=== PATIENT | female | born 1970 | race Caucasian/White ===

== ENCOUNTER 2016-12-25 15:10 | Emergency (ER) | payer OTHER ==
[~2016-12-25] VITALS: Ht 172.7 cm; Wt 65.0 kg
[2016-12-25] MEDS ORDERED: CITA20TA9 PO (15:25)
[2016-12-25] MEDS ORDERED: TRAZ-147 PO (15:25)
[2016-12-25] MEDS ORDERED: FOLI1 PO (15:25)
[2016-12-25] MEDS ORDERED: FLUT16H NASAL (15:25)
[2016-12-25] MEDS ORDERED: THIA100 PO (15:25)
[2016-12-25] MEDS ORDERED: MULT1TAB70 PO (15:25)
[2016-12-25] MEDS ORDERED: LORA10TA7 PO (15:25)
[2016-12-25] MEDS ORDERED: FAMO20 PO (15:25)
[2016-12-25] MEDS ORDERED: ASPI81TA42 PO (15:25)
[2016-12-25] MEDS ORDERED: IBUP-1547 PO (15:25)
[2016-12-25] MEDS ORDERED: BECL8.7A5 IH (15:25)
[2016-12-25] MEDS ORDERED: BUSP15 PO (15:25)
[2016-12-25] MEDS ORDERED: BENZ-26 PO (15:25)
[2016-12-25] MEDS ORDERED: ATOR40TA28 PO (15:25)
[2016-12-25] MEDS ORDERED: INDO50 PO (15:25)
[2016-12-25] MEDS ORDERED: SODIUM CHLORIDE 0.9% 1,000 ML IV ONE (15:53)
[2016-12-25] MEDS ORDERED: DiphenhydrAMINE HCL 50 MG/ML VIAL IVP ONE (16:00)
[2016-12-25] MEDS ORDERED: ONDANSETRON HCL 4 MG/2 ML VIAL IVP ONE (16:00)
[2016-12-25 17:05] LABS: BASOPHILS % (AUTO) 0.3 % (0.0-2.0); EOSINOPHILS % (AUTO) 0 % (1.0-6.0); HEMOGLOBIN 13.3 g/dL (12.0-16.0); LYMPHOCYTES # (AUTO) 0.9 K/uL (1.0-4.8); MEAN CORPUSCULAR HGB CONC 34.1 G/dL (31.0-37.0); MEAN CORPUSCULAR VOLUME 91 fL (80-100); MONOCYTES # (AUTO) 1.5 K/uL (0.1-1.0); MONOCYTES % (AUTO) 6.8 % (2.0-9.0); NEUTROPHILS # (AUTO) 19.2 K/uL (1.8-7.7); PLATELET COUNT (AUTO) 232 K/uL (150-450); RED BLOOD CELL COUNT(AUTO) 4.29 MIL/uL (4.00-5.20); RED CELL DISTRIBUTION WIDTH 13.8 % (11.5-14.5); WHITE BLOOD COUNT (AUTO) 21.6 K/uL (4.5-11.0)
[2016-12-25 17:07] LABS: NEUTROPHILS % (AUTO) 88.9 % (40.0-70.0)
[2016-12-25 17:27] LABS: RBC MORPHOLOGY COMMENT NORMAL RBC MORPH
[2016-12-25 17:54] LABS: ANION GAP 9 mmol/L (8-16); CALCIUM, TOTAL 8.8 mg/dL (8.8-10.5); CARBON DIOXIDE 29 mmol/L (22-29); CHLORIDE 97 mmol/L (98-107); CREATININE 0.87 mg/dL (0.60-1.30); GLOMERULAR FILTR. RATE CALC > 60 mL/min (>60); POTASSIUM 4.1 mmol/L (3.5-5.1); SODIUM SERUM 135 mmol/L (136-145); UREA NITROGEN, BLOOD 15 mg/dL (7-18)
[2016-12-25 18:02] LABS: INFLUENZA TYPE B NEGATIVE FOR TYPE B (NEGATIVE)
[2016-12-25 18:05] LABS: ALANINE AMINOTRANSFERASE 18 U/L (12-78); ALBUMIN 3.5 g/dL (3.4-5.0); ASPARTATE AMINOTRANSFERASE 12 U/L (15-37); BILIRUBIN,TOTAL 0.5 mg/dL (0.1-1.0); TOTAL PROTEIN, SERUM 6.9 g/dL (6.4-8.2)
[2016-12-25] MEDS ORDERED: KETOROLAC TROMETHAMINE 30 MG/ML VIAL IVP ONE (18:30)
[2016-12-25 19:13] LABS: ADD UA MICROSCOPIC YES; APPEARANCE,URINE CLOUDY (CLEAR); GLUCOSE, URINE (UA) NEGATIVE (NEGATIVE); KETONES,URINE NEGATIVE (NEGATIVE); LEUKOCYTE ESTERASE ,URINE SMALL (NEGATIVE); OCCULT BLOOD,URINE SMALL (NEGATIVE); PH,URINE 7.5 (5.0-8.0); PROTEIN,URINE TRACE (NEGATIVE)
[2016-12-25 19:36] LABS: SQUAMOUS EPITHELIAL CELL,UR Moderate /LPF (None Seen)
[2016-12-25] MEDS ORDERED: NITROFURANTOIN/NITROFURAN MAC 100 MG CAPSULE [MACROBID] PO ONE (20:15)
[2016-12-25 21:11] VITALS: BP 118/80
== END 2016-12-25 21:32 | disposition home or self-care (01) ==
LOC: EMS 15:12
DX: N39.0 Urinary tract infection, site not specified (principal); J44.9 Chronic obstructive pulmonary disease, unspecified; K21.9 Gastro-esophageal reflux disease without esophagitis; F17.210 Nicotine dependence, cigarettes, uncomplicated; Z88.0 Allergy status to penicillin
CPT/HCPCS: 36415; 80053; 80307; 81001; 84703; 85025; 87086; 87804; 96361; 96374; 96375; 99285; 99406; J1200; J1885; J2405; J7030